=== PATIENT | male | born 1950 | race Caucasian/White ===

== ENCOUNTER 2018-11-14 08:46 | Day surgery (SDC) | payer MEDICARE, BC ==
--- NOTE | 2018-11-12 15:21 | HP ---
DATE OF SURGERY: 11/14/2018 ANTICIPATED PROCEDURE: Colonoscopy. HISTORY OF PRESENT ILLNESS: Patient presents for five year follow up of polyps. He had colonoscopy back in 2013. PAST MEDICAL HISTORY: ALLERGIES: NONE. MEDICATIONS: Amlodipine, lisinopril, Simvastatin, aspirin. PAST SURGICAL HISTORY: None recent. SOCIAL HISTORY: Negative. FAMILY HISTORY: Negative. REVIEW OF SYSTEMS: Heart disease. Elevated cholesterol. Hypertension. PHYSICAL EXAMINATION: VITAL SIGNS: Normal. CHEST: Clear. COR: Regular. ABDOMEN: Satisfactory. IMPRESSION: Follow up for polyps. PLAN: Colonoscopy.
[~2018-11-14 08:46] MED LIST: Lactated Ringers 1,000 ML IV ONE
[2018-11-14] MEDS ORDERED: DEMEROL 50 MG IJ ONE (08:47)
[2018-11-14] MEDS ORDERED: DEMEROL 50 MG IV ONE (08:47)
[2018-11-14] MEDS ORDERED: VERSED 5 MG/5 ML IV ONE (08:47)
[2018-11-14] MEDS ORDERED: Lactated Ringers 1,000 ML IV SCH (09:30)
--- NOTE | 2018-11-14 11:49 | OP ---
SURGERY DATE/TIME: 11/14/2018 1015 PREOPERATIVE DIAGNOSIS: Follow up polyps. POSTOPERATIVE DIAGNOSES: 1) Two polyps in the cecum. 2) Mild diverticulosis of sigmoid. PROCEDURE: Colonoscopy complete to cecum with hot polypectomy x2. SURGEON: Renato Diaz M.D. ANESTHESIA: IV sedation 15 minutes monitored. COMPLICATIONS: None. CONDITION: Stable. INDICATION: A patient with three year follow up polyp. DESCRIPTION OF PROCEDURE: Taken to endoscopy. Left lateral decubitus position. Excellent prep was present. Scope advanced to the cecum. Anal digital examination satisfactory. Prostate was large but no specific lesion. On circumferential withdrawal there were two cecal polyps submitted as "Cecal polyps 1 cm and 8 mm". Ascending, hepatic, transverse, splenic, descending, sigmoid mild diverticulosis. Rectum normal. Anus normal. The scope withdrawn. The patient tolerated the procedure satisfactorily. Prep score was excellent. Withdrawal time was 6 minutes. The patient tolerated the procedure well. PLAN: Follow up in three years.
[2018-11-14 11:51] VITALS: O2SAT 95
[2018-11-14 11:55] VITALS: BP 118/68; PULSE 58
== END 2018-11-14 11:50 | disposition home or self-care (01) ==
LOC: SDC 08:46
PROVIDERS: ATTEND Surgery
DX: Z12.11 Encounter for screening for malignant neoplasm of colon (principal); D12.0 Benign neoplasm of cecum; K57.30 Diverticulosis of large intestine without perforation or abscess without bleeding; Z86.010 Personal history of colon polyps; I10 Essential (primary) hypertension; I51.9 Heart disease, unspecified; E78.00 Pure hypercholesterolemia, unspecified; Z79.899 Other long term (current) drug therapy
CPT/HCPCS: 88305; J2175; J2250